=== PATIENT | female | born 1990 | race Caucasian/White ===

== ENCOUNTER 2018-09-12 20:39 | Emergency (ER) | payer SELFPAY ==
--- NOTE | 2018-09-12 22:41 | ER Document Report ---
ED Medical Screen (RME) - General Chief Complaint: Abdominal Pain Stated Complaint: ABDOMINAL PAIN Time Seen by Provider: 09/12/18 22:36 Notes: Patient is a 28-year-old female who presents the emergency department with a chief complaint of chest pain and abdominal pain. She states that her pain started yesterday she takes planes her pain as a sharp shooting pain that does not radiate. She also has lower abdominal pain. She states that her last menstrual cycle was on August 20, which was only 8 days. She did take some home tests, but they were negative. She is not sure if she is at this time. She denies any fevers. She does have some nausea, but denies vomiting or diarrhea. Exam: Tenderness at Nolasco's point; tenderness to bilateral pelvic area. S1-S2, nontoxic in appearance. I have greeted and performed a rapid initial assessment of this patient. A comprehensive ED assessment and evaluation of the patient, analysis of test results and completion of medical decision making process will be conducted by an additional ED providers. TRAVEL OUTSIDE OF THE [place] IN LAST 30 DAYS: No - Related Data Allergies/Adverse Reactions: Sulfa (Sulfonamide Antibiotics) Allergy (Verified 09/12/18 22:36) Past Medical History - Social History Frequency of alcohol use: Occasional Renal/ Medical History: Denies: Hx Peritoneal Dialysis Physical Exam - Vital signs Vitals: Temp Pulse Resp BP Pulse Ox 98.1 F 104 H 16 138/91 H 100 09/12/18 20:47 09/12/18 20:47 09/12/18 20:47 09/12/18 20:47 09/12/18 20:47 Course - Vital Signs Vital signs: Temp Pulse Resp BP Pulse Ox 98.1 F 104 H 16 138/91 H 100 09/12/18 20:47 09/12/18 20:47 09/12/18 20:47 09/12/18 20:47 09/12/18 20:47
[2018-09-12 23:05] LABS: APPEARANCE,URINE SLIGHTLY-CLOUDY; BILIRUBIN,URINE NEGATIVE (NEGATIVE); COLOR,URINE YELLOW; GLUCOSE, URINE NEGATIVE (NEGATIVE); KETONES,URINE NEGATIVE (NEGATIVE); LEUKOCYTE ESTERASE,URINE TRACE (NEGATIVE); NITRITE,URINE NEGATIVE (NEGATIVE); PROTEIN,URINE NEGATIVE (NEGATIVE); URINE SPECIFIC GRAVITY 1.024; UROBILINOGEN,URINE NEGATIVE mg/dL (<2.0)
[2018-09-12 23:40] LABS: ABSOLUTE EOSINOPHILS # (AUTO) 0.1 10^3/uL (0.0-0.6); ABSOLUTE LYMPHOCYTES (AUTO) 2.4 10^3/uL (0.5-4.7); ABSOLUTE MONOCYTES (AUTO) 0.5 10^3/uL (0.1-1.4); ABSOLUTE NEUT (AUTO) 6.4 10^3/uL (1.7-8.2); BASOPHILS % (AUTO) 0.3 % (0-2); EOSINOPHILS % (AUTO) 1.2 % (0-6); HEMATOCRIT 33.4 % (36.0-47.0); HEMOGLOBIN 10.5 g/dL (12.0-15.5); LYMPHOCYTES % (AUTO) 25.6 % (13-45); MEAN CORPUSCULAR HEMOGLOBIN 24.3 pg (27.0-33.4); MEAN CORPUSCULAR HGB CONC 31.6 g/dL (32.0-36.0); MEAN CORPUSCULAR VOLUME 77 fl (80-97); MONOCYTES % (AUTO) 5.5 % (3-13); PLATELET COUNT 454 10^3/uL (150-450); RED BLOOD COUNT 4.33 10^6/uL (3.72-5.28); RED CELL DISTRIBUTION WIDTH 16.2 % (11.5-14.0); SEGMENTED NEUTROPHILS % (AUTO) 67.4 % (42-78); TOTAL CELLS COUNTED % (AUTO) 100 %; WHITE BLOOD COUNT 9.5 10^3/uL (4.0-10.5)
[2018-09-12 23:55] LABS: ALANINE AMINOTRANSFERASE 29 U/L (9-52); ALBUMIN 4.5 g/dL (3.5-5.0); ALKALINE PHOSPHATASE 75 U/L (38-126); ANION GAP 11 (5-19); ASPARTATE AMINO TRANSFERASE 22 U/L (14-36); BILIRUBIN,DIRECT 0.2 mg/dL (0.0-0.4); BILIRUBIN,TOTAL 0.2 mg/dL (0.2-1.3); BLOOD UREA NITROGEN 10 mg/dL (7-20); CALCIUM 9.6 mg/dL (8.4-10.2); CARBON DIOXIDE 24 mmol/L (22-30); CHLORIDE 105 mmol/L (98-107); GLUCOSE 111 mg/dL (75-110); POTASSIUM 4.3 mmol/L (3.6-5.0); SODIUM 139.9 mmol/L (137-145); TOTAL PROTEIN 8.7 g/dL (6.3-8.2)
--- NOTE | 2018-09-13 00:34 | RADIOLOGY REPORT (SQ) ---
EXAM DESCRIPTION: US TRANSVAGINAL COMPLETED DATE/TME: 09/12/2018 22:37 CLINICAL HISTORY: 28 years, Female, abdominal pain; spotting COMPARISON: None. TECHNIQUE: Transverse and longitudinal transvaginal sonographic images of the pelvis LIMITATIONS: None. FINDINGS: The uterus measures 7.4 x 3.8 x 4.1 cm. The endometrium measures 4.5 mm in thickness. Myometrium is homogenous. Right ovary is not well seen likely due to its position in the pelvis. Left ovary measures 3.7 x 2.2 x 2.5 cm. Arterial and venous flow to left ovary. There is a 2.7 x 1.5 x 1.8 cm cyst of the left ovary showing minimal internal low-level echoes. No solid adnexal mass. No free fluid IMPRESSION: Nonvisualization of the right ovary, likely due to its position in the pelvis. Minimally complex cystic focus of the left ovary likely reflects complex or hemorrhagic dominant follicle. Recommendations for f/u of ovarian hemorrhagic cysts and corpus luteum cysts (1): Corpus luteum cyst, w/o : <=3 cm No follow-up imaging recommended >3 cm US f/u 6-12 wks. If resolved or smaller, no further f/u. If stable/larger, continue f/u with US or consider MR w/IVC Hemorrhagic cyst, Pre-menopause: <=5 cm No follow-up imaging recommended >5 cm US f/u 6-12 weeks. If not resolved, US f/u annually. Hemorrhagic cyst, Early Post-menopause (1-5 years from last menstrual period): Any size: US f/u 6-12 weeks. If not resolved, US f/u annually. Hemorrhagic cyst, Late Post-menopause (>5 years from last menstrual period): Any size: Consider surgical evaluation (1) Recommendations based upon the 2010 SRU Consensus Conference Statement on the Management of Asymptomatic Ovarian and Other Adnexal Cysts Imaged at US: Radiology. 2009;256(3):946-54 copyright 2011 [employer]- All Rights Reserved
--- NOTE | 2018-09-13 00:34 | RADIOLOGY REPORT (SQ) ---
EXAM DESCRIPTION: [facility]: US ABDOMEN LIMITED CLINICAL HISTORY: 28 years Female; RUQ pain TECHNIQUE: Right upper quadrant ultrasound was performed. COMPARISON: None. FINDINGS: Pancreas: Visualized portions are unremarkable. Liver: 16.3 cm long, slightly echogenic. No ductal distention. Portal venous flow is hepatopedal, normal. Gallbladder: Somewhat contracted. Multiple shadowing calculi. No Nolasco sign. No pericholecystic fluid. Common bile duct: 2 mm. Right kidney: 9 cm long. No hydronephrosis. Aorta: 1.8 cm. IVC patent. IMPRESSION: 1. Cholelithiasis, but no sonographic evidence for acute cholecystitis. 2. No biliary ductal distention 3. Hepatic steatosis
--- NOTE | 2018-09-13 01:37 | ER Document Report ---
ED General - General Chief Complaint: Abdominal Pain Stated Complaint: ABDOMINAL PAIN Time Seen by Provider: 09/12/18 22:36 Primary Care Provider: DEBBY WHITLEY MD [ACTIVE STAFF] - Follow up as needed Notes: Patient is a 28-year-old female who presents the emergency department with a chief complaint of chest pain and abdominal pain. She states that her pain started yesterday she takes planes her pain as a sharp shooting pain that does not radiate. She also has lower abdominal pain. She states that her last menstrual cycle was on August 20, which was only 8 days. She did take some home tests, but they were negative. She is not sure if she is at this time. She denies any fevers. She does have some nausea, but denies vomiting or diarrhea. TRAVEL OUTSIDE OF THE [place] IN LAST 30 DAYS: No - Related Data Allergies/Adverse Reactions: Sulfa (Sulfonamide Antibiotics) Allergy (Verified 09/12/18 22:36) Past Medical History - Social History Smoking Status: Former Smoker Frequency of alcohol use: Occasional Family History: Reviewed & Not Pertinent Patient has suicidal ideation: No Patient has homicidal ideation: No Renal/ Medical History: Denies: Hx Peritoneal Dialysis Review of Systems - Review of Systems Notes: REVIEW OF SYSTEMS: CONSTITUTIONAL : Denies recent illness. Denies recent unintentional weight loss. Denies fever, chills, or sweats. EENT: Denies eye, ear, throat, or mouth pain, discharge, or symptoms. Denies nasal or sinus congestion. CARDIOVASCULAR: See HPI RESPIRATORY: Denies shortness of breath, cough, congestion, difficulty breathing, or wheezing. GASTROINTESTINAL: See HPI GENITOURINARY: Denies difficulty urinating, burning, blood in urine, urgency or frequency. MUSCULOSKELETAL: Denies neck and back pain. Denies joint pain or swelling. SKIN: Denies rash, itchiness, or lesions HEMATOLOGIC : Denies easy bruising or bleeding. LYMPHATIC: Denies swollen, painful, enlarged glands. NEUROLOGICAL: Denies no numbness or tingling denies weakness. Denies headache. Denies altered mental status. Denies alteration in speech. PSYCHIATRIC: Denies stress, anxiety, alteration in sleep patterns, or depression. SMOKE TESTER: See HPI All other systems reviewed and negative. Physical Exam - Vital signs Vitals: Temp Pulse Resp BP Pulse Ox 98.1 F 104 H 16 138/91 H 100 09/12/18 20:47 09/12/18 20:47 09/12/18 20:47 09/12/18 20:47 09/12/18 20:47 - Notes Notes: PHYSICAL EXAMINATION: GENERAL: Appears well, healthy, well-nourished, no acute distress. HEAD: Normocephalic, atraumatic. EYES: PERRL, conjunctiva normal, all extraocular movements intact, sclera nonicteric ENT: Moist mucous membranes. NECK: Supple, no noticeable swelling, redness, rash. Normal range of motion. LUNGS: Equal breath sounds bilaterally and clear to auscultation. No wheezes rales or rhonchi. CARDIOVASCULAR: S1-S2, regular rate, regular rhythm. Radial pulses 2+, normal. ABDOMEN: Normoactive bowel sounds. Tender right upper quadrant and left lower quadrant EXTREMITIES: Normal strength and range of motion, no pitting or edema. No cyanosis. NEUROLOGICAL: Moves all extremities upon command. Strength 5/5 in all extremities. PSYCH: Normal mood, normal affect. SKIN: Warm, dry. No rash, lesions, ulcerations noted. Normal skin turgor. Course - Re-evaluation Re-evalutation: 09/13/18 01:37 Patient's right upper quadrant shows cholelithiasis, but no cholecystitis at this time. I have advised her that she needs to follow-up with general surgery as needed if she does continue to have problems. She also has a cyst on her l eft ovary. She will be given Toradol for pain relief. She is in agreement with this plan. Verbal discharge instructions were given to the patient. They verbalized understanding. They are stable for discharge. - Vital Signs Vital signs: Temp Pulse Resp BP Pulse Ox 98 F 95 16 127/81 H 99 09/13/18 02:40 09/13/18 02:40 09/13/18 02:40 09/13/18 02:40 09/13/18 02:40 - Laboratory Result Diagrams: 09/12/18 23:18 09/12/18 23:18 Laboratory results interpreted by me: 09/12/18 09/12/18 09/12/18 22:51 23:18 23:18 Hgb 10.5 L Hct 33.4 L MCV 77 L MCH 24.3 L MCHC 31.6 L RDW 16.2 H Plt Count 454 H Glucose 111 H Total Protein 8.7 H Urine Blood LARGE H Ur Leukocyte Esterase TRACE H Discharge - Discharge Clinical Impression: Abdominal pain Qualifiers: Abdominal location: right upper quadrant Qualified Code(s): R10.11 - Right upper quadrant pain Chest pain Qualifiers: Chest pain type: unspecified Qualified Code(s): R07.9 - Chest pain, unspecified Disposition: HOME, SELF-CARE Additional Instructions: You were seen today in the department for chest pain and abdominal pain. You still have gallstones, which is the cause of your chest pain. Your chest x-ray is normal. You are not . You may have a cyst on your left ovary, causing you some pain. Please follow-up with your primary care provider in regards to this visit. If you have worsening symptoms, shortness of breath, difficulty breathing, or have any symptoms that are worrisome to you, please return to the emergency department. Follow up with General Surgery for evaluation of your gallstones. Prescriptions: Ketorolac Tromethamine [Toradol 10 mg Tablet] 10 mg PO Q6HP PRN #20 tablet PRN Reason: Forms: Return to Work Referrals: DEBBY WHITLEY MD [ACTIVE STAFF] - Follow up as needed
--- NOTE | 2018-09-13 02:09 | RADIOLOGY REPORT (SQ) ---
EXAM DESCRIPTION: XR CHEST 2 VIEWS COMPLETED DATE/TME: 09/12/2018 22:38 CLINICAL HISTORY: 28 years, Female, chest pain Comparison: None FINDINGS: No focal lung consolidation. No pleural effusion. No pneumothorax. Cardiac and mediastinal silhouette is unremarkable. No acute osseous abnormality. Soft tissues are unremarkable. IMPRESSION: No acute findings. No focal lung consolidation.
[2018-09-13] MEDS ORDERED: KETOROLAC TROMETHAMINE 10 MG TABLET PO ONE (03:15)
[2018-09-13 03:27] VITALS: BP 127/81
== END 2018-09-13 02:40 | disposition home or self-care (01) ==
LOC: ER 20:39
DX: R10.11 Right upper quadrant pain (principal); R07.9 Chest pain, unspecified; R10.9 Unspecified abdominal pain; R10.30 Lower abdominal pain, unspecified; Z87.891 Personal history of nicotine dependence
CPT/HCPCS: 99284; 36415; 84703; 85025; 80053; 81001; 71046; 76705; 76830; 93976; J3490

== ENCOUNTER 2018-10-04 22:31 | Emergency (ER) | payer SELFPAY ==
[2018-10-05] MEDS ORDERED: NORMAL SALINE 1000 ML 1,000 ML IV ONE (00:44)
--- NOTE | 2018-10-05 00:47 | ER Document Report ---
ED Medical Screen (RME) - General Chief Complaint: Probable Seizure Stated Complaint: CHEST PAIN,WEAKNESS,SEIZURES Time Seen by Provider: 10/05/18 00:44 Notes: 28-year-old female, states that she had multiple seizures prior to arrival, has had abdominal pain this afternoon evening, chest pain this afternoon and evening, and still has these pains. She states that she remembers lying on the floor and jerking during her seizure. She does not have a history of seizures. She states she has a family member who had seizures. Significant other at bedside states her seizures are "her sitting there and randomly jerking out her arms". He states that he went into the bathroom and found on the ground as if she passed out prior to bring her to the emergency department. TRAVEL OUTSIDE OF THE [place] IN LAST 30 DAYS: No - Related Data Allergies/Adverse Reactions: Sulfa (Sulfonamide Antibiotics) Allergy (Verified 10/04/18 22:35) Past Medical History Renal/ Medical History: Denies: Hx Peritoneal Dialysis Physical Exam - Vital signs Vitals: Temp Pulse Resp BP Pulse Ox 98.6 F 102 H 20 135/81 H 96 10/04/18 23:28 10/04/18 23:28 10/04/18 23:28 10/04/18 23:28 10/04/18 23:28 - Abdominal Inspection: Normal Tenderness: Tender - Complains of pain regardless when I press on the abdomen. No noted pain reaction however, seems soft, no guarding - Neurological Cognition: Normal Orientation: AAOx4 Radha Coma Scale Eye Opening: Spontaneous Radha Coma Scale Verbal: Oriented [place] Coma Scale Motor: Obeys Commands [place] Coma Scale Total: 15 Speech: Normal Cranial nerves: Normal Cerebellar coordination: Normal Motor strength normal: LUE, RUE, LLE, RLE Course - Re-evaluation Re-evalutation: Patient has a large smile on her face as she is describing her symptoms. She is not postictal. Described episodes do not sound like seizures. Reporting current chest pain and abdominal pain, work-up as result is pending. I have greeted and performed a rapid initial assessment of this patient. A comprehensive ED assessment and evaluation of the patient, analysis of test results and completion of the medical decision making process will be conducted by additional ED providers. - Vital Signs Vital signs: Temp Pulse Resp BP Pulse Ox 98.6 F 102 H 20 135/81 H 96 10/04/18 23:28 10/04/18 23:28 10/04/18 23:28 10/04/18 23:28 10/04/18 23:28
[2018-10-05 02:32] LABS: ABSOLUTE EOSINOPHILS # (AUTO) 0.1 10^3/uL (0.0-0.6); ABSOLUTE LYMPHOCYTES (AUTO) 3.4 10^3/uL (0.5-4.7); ABSOLUTE MONOCYTES (AUTO) 0.7 10^3/uL (0.1-1.4); ABSOLUTE NEUT (AUTO) 8.6 10^3/uL (1.7-8.2); BASOPHILS % (AUTO) 0.3 % (0-2); EOSINOPHILS % (AUTO) 0.9 % (0-6); HEMATOCRIT 34.6 % (36.0-47.0); HEMOGLOBIN 10.9 g/dL (12.0-15.5); LYMPHOCYTES % (AUTO) 26.4 % (13-45); MEAN CORPUSCULAR HEMOGLOBIN 23.9 pg (27.0-33.4); MEAN CORPUSCULAR HGB CONC 31.7 g/dL (32.0-36.0); MEAN CORPUSCULAR VOLUME 76 fl (80-97); MONOCYTES % (AUTO) 5.7 % (3-13); PLATELET COUNT 515 10^3/uL (150-450); RED BLOOD COUNT 4.58 10^6/uL (3.72-5.28); RED CELL DISTRIBUTION WIDTH 17.4 % (11.5-14.0); SEGMENTED NEUTROPHILS % (AUTO) 66.7 % (42-78); TOTAL CELLS COUNTED % (AUTO) 100 %
[2018-10-05 02:35] LABS: APPEARANCE,URINE SLIGHTLY-CLOUDY; BILIRUBIN,URINE NEGATIVE (NEGATIVE); COLOR,URINE YELLOW; GLUCOSE, URINE NEGATIVE (NEGATIVE); KETONES,URINE NEGATIVE (NEGATIVE); LEUKOCYTE ESTERASE,URINE TRACE (NEGATIVE); NITRITE,URINE NEGATIVE (NEGATIVE); PROTEIN,URINE NEGATIVE (NEGATIVE); URINE SPECIFIC GRAVITY 1.019; UROBILINOGEN,URINE NEGATIVE mg/dL (<2.0)
[2018-10-05 03:00] LABS: ALANINE AMINOTRANSFERASE 23 U/L (9-52); ALBUMIN 4.7 g/dL (3.5-5.0); ALKALINE PHOSPHATASE 67 U/L (38-126); ANION GAP 12 (5-19); ASPARTATE AMINO TRANSFERASE 18 U/L (14-36); BILIRUBIN,DIRECT 0.3 mg/dL (0.0-0.4); BILIRUBIN,TOTAL 0.5 mg/dL (0.2-1.3); BLOOD UREA NITROGEN 14 mg/dL (7-20); CALCIUM 9.7 mg/dL (8.4-10.2); CARBON DIOXIDE 25 mmol/L (22-30); CHLORIDE 99 mmol/L (98-107); GLUCOSE 123 mg/dL (75-110); POTASSIUM 4.4 mmol/L (3.6-5.0); SODIUM 135.7 mmol/L (137-145); TOTAL PROTEIN 8.6 g/dL (6.3-8.2)
--- NOTE | 2018-10-05 03:14 | RADIOLOGY REPORT (SQ) ---
CLINICAL HISTORY: chest pain COMPARISON: None. TECHNIQUE: XR CHEST 2 VIEWS 10/05/2018 12:44 AM CDT FINDINGS: Cardiac silhouette is normal in size. Lungs are clear without consolidation, atelectasis, mass or edema. There is no pleural effusion. There is no pneumothorax. There are no acute osseous findings. IMPRESSION: Clear lungs.
[2018-10-05] MEDS ORDERED: KETOROLAC TROMETHAMINE INJ/PF 30 MG/1 ML SDV IV ONE (03:54)
[2018-10-05 08:40] VITALS: BP 129/70
--- NOTE | 2018-10-05 09:18 | ER Document Report ---
Entered by LAZ DYKES SCRIBE 10/05/18 0827 Acting as scribe for:DEJAN NIEVES MD ED General - General Chief Complaint: Probable Seizure Stated Complaint: CHEST PAIN,WEAKNESS,SEIZURES Time Seen by Provider: 10/05/18 00:44 Mode of Arrival: Ambulatory Information source: Patient Notes: Patient is a 28-year-old female presenting to the complaining of multiple s ymptoms including jerking motions of her BUE, chest pain and abdominal pain. Patient states last night while in the car with her boyfriend she began to feel lightheaded, dizzy and tired. She states they were on their way home from the gas station when she proceeded to have a sudden onset of 18-20 jerking like motions of her bilateral arms. Patient states upon arrival to her boyfriends home, he attempted to give the patient skittles because he thought her blood sugar could have been low. Patient states she has not had anymore jerking like movements. Patient states she also has upper abdominal pain and chest pain onset yesterday afternoon. Patient states she has been diagnosed with gallstones and has been to [facility], hospital in [facility] concerning her abdominal and chest pain. Patient denies any vomiting or fevers. TRAVEL OUTSIDE OF THE [place] IN LAST 30 DAYS: No - Related Data Allergies/Adverse Reactions: Sulfa (Sulfonamide Antibiotics) Allergy (Verified 10/04/18 22:35) Past Medical History - General Information source: Patient - Social History Smoking Status: Never Smoker Chew tobacco use (# tins/day): No Frequency of alcohol use: None Drug Abuse: None Family History: Reviewed & Not Pertinent Patient has suicidal ideation: No Patient has homicidal ideation: No Review of Systems - Review of Systems Constitutional: No symptoms reported EENT: No symptoms reported Cardiovascular: See HPI, Chest pain Respiratory: No symptoms reported Gastrointestinal: Abdomen distended, Abdominal pain Genitourinary: No symptoms reported Female Genitourinary: No symptoms reported Musculoskeletal: No symptoms reported Skin: No symptoms reported Hematologic/Lymphatic: No symptoms reported Neurological/Psychological: See HPI -: Yes All other systems reviewed and negative Physical Exam - Vital signs Vitals: Temp Pulse Resp BP Pulse Ox 98.6 F 102 H 20 135/81 H 96 10/04/18 23:28 10/04/18 23:28 10/04/18 23:28 10/04/18 23:28 10/04/18 23:28 - Notes Notes: GENERAL: Alert, interacts well. No acute distress. HEAD: Normocephalic, atraumatic. EYES: Pupils equal, round, and reactive to light. Extraocular movements intact. ENT: Oral mucosa moist, tongue midline. NECK: Full range of motion. Supple. Trachea midline. LUNGS: Clear to auscultation bilaterally, no wheezes, rales, or rhonchi. No respiratory distress. Anterior chest wall tenderness to palpation. HEART: Regular rate and rhythm. No murmurs, gallops, or rubs. ABDOMEN: Soft, morbidly obese. Diffusely tender to palpation, more tender to the left upper and lower abdomen. Non-distended. Bowel sounds present in all 4 quadrants. No guarding, rigidity, or rebound. EXTREMITIES: Moves all 4 extremities spontaneously. No edema, radial and dorsalis pedis pulses 2/4 bilaterally. No cyanosis. NEUROLOGICAL: Alert and oriented x3. Normal speech. PSYCH: Normal affect, normal mood. SKIN: Warm, dry, normal turgor. No rashes or lesions noted. Course - Vital Signs Vital signs: Temp Pulse Resp BP Pulse Ox 98.2 F 102 H 23 H 129/70 H 98 10/05/18 06:34 10/04/18 23:28 10/05/18 08:01 10/05/18 08:01 10/05/18 08:01 - Laboratory Result Diagrams: 10/05/18 02:00 10/05/18 02:00 Laboratory results interpreted by me: 10/05/18 10/05/18 10/05/18 01:54 02:00 02:00 WBC 13.0 H Hgb 10.9 L Hct 34.6 L MCV 76 L MCH 23.9 L MCHC 31.7 L RDW 17.4 H Plt Count 515 H Absolute Neutrophils 8.6 H Sodium 135.7 L Glucose 123 H Total Protein 8.6 H Ur Leukocyte Esterase TRACE H Discharge - Discharge Clinical Impression: Chest wall pain, Jerking movements of extremities Abdominal pain Qualifiers: Abdominal location: generalized Qualified Code(s): R10.84 - Generalized abdominal pain Condition: Stable Disposition: HOME, SELF-CARE Additional Instructions: Chest Wall Pain: Your chest pain has been diagnosed as coming from the chest wall. This is often caused by straining the muscles or joints in the chest during physical activity, direct trauma, coughing, or vigorous vomiting. Persons with arthritis are especially prone to this type of pain, due to inflammation of the cartilage joints near the breast bone. Occasionally, no cause can be found. Rest from strenuous physical activity. This kind of chest pain is usually ma de worse by movement of the chest. Depending on the symptoms, we may prescribe medicine for pain, muscle relaxation, and antiinflammatory effects. If the pain is new, and seems to be due to muscle strain, cold packs can help. Otherwise, apply gentle warmth to the painful area for 15 minutes every hour or two. You should contact the doctor immediately if things change. Further evaluation is needed if you develop a fever or cough, if the nature of the pain changes, or if you become short of breath. Abdominal Pain: There are many causes of abdominal pain. Pain can mean a serious problem requiring surgery (such as appendicitis). It can also be an innocent problem that goes away on its own (such as a viral infection). Often, time must pass to determine the cause of pain. The physician does not feel that hospitalization is necessary, at present. Things may change within the next 24 hours. Call the doctor or come back for re- examination if any problems occur, such as: (1) Pain that becomes more severe, steady, or becomes concentrated in one specific area. Also, pain that is more severe with movement or coughing. (2) Vomiting that persists or becomes more frequent. (3) Blood in the vomitus, urine, or bowel movements. Blood in the stool may have a tarry or black appearance. (4) Shaking chills or fever greater than 100 degrees F. (5) The abdomen becomes more distended or swollen. (6) Bowel movements cease. (7) Failure to improve as expected. Drink plenty of fluids and get plenty of rest today. Take ibuprofen 800 mg every 8 hours or Aleve 2 tablets every 12 hours for your chest wall pain. Follow-up with a local primary care provider for management of your chronic abdomen and chest pains. Follow-up with [facility] for your gallbladder problems. RETURN TO THE EMERGENCY ROOM IF ANY NEW OR WORSENING SYMPTOMS. Forms: Return to Work I personally performed the services described in the documentation, reviewed and edited the documentation which was dictated to the scribe in my presence, and it accurately records my words and actions.
--- NOTE | 2018-10-06 12:45 | EKG REPORT ---
SEVERITY:- NORMAL ECG - SINUS RHYTHM : Confirmed by: Gurmeet Crum 06-Oct-2018 12:44:25
== END 2018-10-05 08:39 | disposition home or self-care (01) ==
LOC: ER 22:31
DX: R10.84 Generalized abdominal pain (principal); R07.89 Other chest pain; R25.1 Tremor, unspecified; R10.9 Unspecified abdominal pain; R42 Dizziness and giddiness; R10.10 Upper abdominal pain, unspecified
CPT/HCPCS: 93005; 99285; 96361; 96374; 36415; 84703; 85025; 80053; 81001; 71046; 93010; J1885; J7030